=== PATIENT | male | born 1990 | race African-American/Black ===

== ENCOUNTER 2019-06-26 23:47 | Observation (INO) ==
[2019-06-27 02:07] LABS: Albumin 4.1 G/DL (3.4-5.0); Bilirubin,Total 0.6 MG/DL (0.2-1.0); Calcium 8.6 MG/DL (8.5-10.1); Osmolality,Calculated 277.5 MOS/KG (273-304); Total Protein 7.5 G/DL (6.4-8.3)
[2019-06-27 02:54] LABS: Basophils % 0.4 % (0.0-0.8); Eosinophils % 0.4 % (0.00-10.9); Hematocrit 42.5 VOL% (42.0-52.0); Hemoglobin 14.2 GM/DL (14.0-18.0); Immature Granulocytes % 0.2 %; Immature Granulocytes Absolute 0.02 #; Lymphocytes # 1.5 10*3/uL (1.4-4.0); Lymphocytes % 18.4 % (21.2-54.2); Mean Corpuscular HGB Conc 33.4 GM/DL (32-36); Mean Corpuscular Volume 90.2 FL (87-102); Mean Platelet Volume 11.8 FL (9.6-12.0); Monocytes % 10.8 % (1.7-12.7); Neutrophils % 69.8 % (38.7-73.9); Platelet Count 172 T/CUMM (130-400); Red Blood Count 4.71 MC/CUMM (3.8-5.5); Red Cell Distribution Width 12.2 % (9.3-17.3); White Blood Count 8.1 T/CUMM (4-12)
[2019-06-27] MEDS ORDERED: ONDANSETRON 4 MG/2 ML VIAL IV PRN (05:32)
[2019-06-27] MEDS ORDERED: LABETALOL 20 MG/4 ML SYRINGE IV PRN (05:39)
[2019-06-27] MEDS: ENOXAPARIN 40 MG/0.4 ML SYRINGE SUBCUT SCH (07:19)
[2019-06-27 08:01] LABS: Risk Ratio 3.49; VLDL CHOLESTEROL 22.6 MG/DL
[2019-06-27] MEDS ORDERED: SODIUM CHLORIDE 0.9% 1,000 ML IV SCH (10:30)
[2019-06-27] MEDS: ACETAMINOPHEN 325 MG TABLET PO PRN ×2 (10:46→21:11)
[2019-06-27] MEDS: POTASSIUM CHLORIDE 20 MEQ TABLET PO SCH ×2 (10:47→21:12)
[2019-06-27] MEDS: PANTOPRAZOLE 40 MG TABLET PO SCH (10:47)
[2019-06-27 11:44] LABS: Barbiturates Screen,Urine Negative (Negative); Benzodiazepines Screen,Urine Negative (Negative); Cannabinoid Screen,Urine Negative (Negative); Opiate Screen,Urine Negative (Negative); Phencyclidine Screen,Urine Negative (Negative)
[2019-06-27] MEDS: SODIUM CHLORIDE 0.9% 1,000 ML IV SCH ×2 (12:06→21:15)
[2019-06-27] MEDS: MORPHINE 4 MG/1 ML VIAL IV PRN ×2 (12:46→18:18)
[2019-06-27] MEDS: carvediloL 6.25 MG TABLET PO SCH (21:12)
[2019-06-27] MEDS: SACUBITRIL/VALSARTAN 49-51 MG TABLET PO SCH (21:12)
[2019-06-28] MEDS: MORPHINE 4 MG/1 ML VIAL IV PRN (02:44)
[2019-06-28 05:26] LABS: Basophils % 0.3 % (0.0-0.8); Eosinophils # 0.1 10*3/uL (0.0-0.87); Eosinophils % 2.1 % (0.00-10.9); Hematocrit 41.2 VOL% (42.0-52.0); Hemoglobin 13.7 GM/DL (14.0-18.0); Immature Granulocytes % 0.3 %; Immature Granulocytes Absolute 0.02 #; Lymphocytes # 2.2 10*3/uL (1.4-4.0); Lymphocytes % 32.8 % (21.2-54.2); Mean Corpuscular HGB Conc 33.3 GM/DL (32-36); Mean Corpuscular Volume 90.5 FL (87-102); Mean Platelet Volume 12.3 FL (9.6-12.0); Monocytes % 13.4 % (1.7-12.7); Neutrophils % 51.1 % (38.7-73.9); Platelet Count 180 T/CUMM (130-400); Red Blood Count 4.55 MC/CUMM (3.8-5.5); Red Cell Distribution Width 12.3 % (9.3-17.3); White Blood Count 6.6 T/CUMM (4-12)
[2019-06-28 06:00] LABS: Albumin 3.4 G/DL (3.4-5.0); Calcium 8.8 MG/DL (8.5-10.1); Osmolality,Calculated 272.8 MOS/KG (273-304)
[2019-06-28] MEDS: ENOXAPARIN 40 MG/0.4 ML SYRINGE SUBCUT SCH (06:22)
[2019-06-28] MEDS: SACUBITRIL/VALSARTAN 49-51 MG TABLET PO SCH ×2 (09:02→21:08)
[2019-06-28] MEDS: PANTOPRAZOLE 40 MG TABLET PO SCH (09:02)
[2019-06-28] MEDS: carvediloL 6.25 MG TABLET PO SCH ×2 (09:02→21:08)
[2019-06-28] MEDS: POTASSIUM CHLORIDE 20 MEQ TABLET PO SCH ×2 (09:02→21:07)
[2019-06-28] MEDS: FUROSEMIDE 40 MG/4 ML VIAL IV SCH (17:56)
[2019-06-29 05:32] LABS: Calcium 9.2 MG/DL (8.5-10.1); Osmolality,Calculated 271.1 MOS/KG (273-304)
[2019-06-29] MEDS: ENOXAPARIN 40 MG/0.4 ML SYRINGE SUBCUT SCH (05:58)
[2019-06-29] MEDS: FUROSEMIDE 40 MG/4 ML VIAL IV SCH (09:00)
[2019-06-29] MEDS: SACUBITRIL/VALSARTAN 49-51 MG TABLET PO SCH ×2 (09:02→20:44)
[2019-06-29] MEDS: PANTOPRAZOLE 40 MG TABLET PO SCH (09:02)
[2019-06-29] MEDS: POTASSIUM CHLORIDE 20 MEQ TABLET PO SCH ×2 (09:02→20:44)
[2019-06-29] MEDS: carvediloL 6.25 MG TABLET PO SCH ×2 (09:02→20:44)
[2019-06-30] MEDS: ENOXAPARIN 40 MG/0.4 ML SYRINGE SUBCUT SCH (06:27)
[2019-06-30] MEDS ORDERED: FUROSEMIDE 40 MG TABLET PO SCH (09:00)
[2019-06-30] MEDS ORDERED: FUROSEMIDE 40 MG/4 ML VIAL IV SCH (09:00)
[2019-06-30] MEDS: SACUBITRIL/VALSARTAN 49-51 MG TABLET PO SCH (09:55)
[2019-06-30] MEDS: POTASSIUM CHLORIDE 20 MEQ TABLET PO SCH (09:55)
[2019-06-30] MEDS: PANTOPRAZOLE 40 MG TABLET PO SCH (09:56)
[2019-06-30] MEDS: carvediloL 6.25 MG TABLET PO SCH (09:56)
[2019-06-30 14:16] VITALS: BP 110/61
== END 2019-06-30 15:15 | disposition home or self-care (01) ==
LOC: N.ED 23:47 → N.EDINP 23:47 → SUATTDRO 06-27 05:32 → N.TELES 06-27 06:21
PROVIDERS: ADMIT Internal Medicine; ATTEND Internal Medicine

== ENCOUNTER 2019-08-21 20:19 | Observation (INO) ==
[2019-08-21] MEDS ORDERED: ALBUTEROL/IPRATROPIUM 3 ML NEB RESP TX STA (21:41)
[2019-08-21 22:08] LABS: Basophils # 0.1 10*3/uL (0.0-0.2); Basophils % 0.6 % (0.0-0.8); Eosinophils # 0.4 10*3/uL (0.0-0.87); Eosinophils % 4.5 % (0.00-10.9); Hematocrit 45.7 VOL% (42.0-52.0); Hemoglobin 15.1 GM/DL (14.0-18.0); Immature Granulocytes % 0.3 %; Immature Granulocytes Absolute 0.03 #; Lymphocytes # 2.5 10*3/uL (1.4-4.0); Lymphocytes % 27.9 % (21.2-54.2); Mean Corpuscular Volume 92.1 FL (87-102); Monocytes % 13.3 % (1.7-12.7); Neutrophils % 53.4 % (38.7-73.9); Platelet Count 262 T/CUMM (130-400); Red Blood Count 4.96 MC/CUMM (3.8-5.5); Red Cell Distribution Width 12.8 % (9.3-17.3)
[2019-08-21 22:16] LABS: INR 0.9; PT Patient Result 10.3 SECS (9.6-12.2); Partial Thromboplastin Time 25.5 SECS (20.8-36.0)
[2019-08-21 22:40] LABS: Alanine Aminotransferase 61 U/L (16-61); Albumin 4.2 G/DL (3.4-5.0); Alkaline Phosphatase 76 U/L (45-117); Aspartate Amino Transferase 34 U/L (0-37); Blood Urea Nitrogen 18 MG/DL (7-18); Calcium 9.4 MG/DL (8.5-10.1); Estimated Glom Filtration Rate 78 ML/MIN; Glucose 100 MG/DL (74-106); Total Protein 8.8 G/DL (6.4-8.3); Troponin I 0.042 NG/ML (0.00-0.045)
[2019-08-21 23:48] LABS: Apearance,Urine CLEAR (Clear); Bilirubin,Urine Negative (Negative); Blood, Urine Moderate mg/dL (Negative); Glucose,Urine (UA) Negative (Negative); Hyaline Casts,Urine 1 /LPF (0-3); Ketones,Urine Negative (Negative); Nitrite,Urine Negative (Negative); Protein,Urine Negative; RBC,Urine 3 /HPF (0-4); Urine Color Yellow (Yellow); Urine Specific Gravity 1.023 (1.001-1.035); WBC,Urine 1 /HPF (0-6)
[2019-08-21 23:55] LABS: Barbiturates Screen,Urine Negative (Negative); Benzodiazepines Screen,Urine Negative (Negative); Cannabinoid Screen,Urine Negative (Negative); Opiate Screen,Urine Negative (Negative); Phencyclidine Screen,Urine Negative (Negative)
[2019-08-22] MEDS ORDERED: cefTRIAXone 1,000 MG in SODIUM CHLORIDE 0.9% 100 ML IV STA (01:20)
[2019-08-22] MEDS ORDERED: AZITHROMYCIN INJ 500 MG in SODIUM CHLORIDE 0.9% 250 ML IV STA (01:20)
[2019-08-22] MEDS ORDERED: diphenhydrAMINE 50 MG/1 ML VIAL ONE (02:07)
[2019-08-22] MEDS ORDERED: diphenhydrAMINE 50 MG/1 ML VIAL IV STA (02:55)
[2019-08-22] MEDS ORDERED: ALBUTEROL 2.5 MG/3 ML NEB RESP TX PRN (03:25)
[2019-08-22] MEDS ORDERED: DOCUSATE SODIUM 100 MG CAPSULE PO PRN (03:28)
[2019-08-22] MEDS ORDERED: MORPHINE 4 MG/1 ML VIAL IV PRN (03:28)
[2019-08-22] MEDS ORDERED: ACETAMINOPHEN 325 MG TABLET PO PRN (03:28)
[2019-08-22] MEDS ORDERED: ONDANSETRON 4 MG/2 ML VIAL IV PRN (03:28)
[2019-08-22] MEDS ORDERED: NICOTINE 21 MG/24 HR PATCH TRANSDERM PRN (04:14)
[2019-08-22 05:21] LABS: Basophils # 0.1 10*3/uL (0.0-0.2); Basophils % 0.8 % (0.0-0.8); Eosinophils # 0.4 10*3/uL (0.0-0.87); Eosinophils % 5.7 % (0.00-10.9); Hematocrit 41.6 VOL% (42.0-52.0); Hemoglobin 13.9 GM/DL (14.0-18.0); Immature Granulocytes % 0.2 %; Immature Granulocytes Absolute 0.01 #; Lymphocytes # 2.2 10*3/uL (1.4-4.0); Lymphocytes % 33.5 % (21.2-54.2); Mean Corpuscular HGB Conc 33.4 GM/DL (32-36); Mean Corpuscular Volume 90.4 FL (87-102); Mean Platelet Volume 11.4 FL (9.6-12.0); Monocytes % 15.4 % (1.7-12.7); Neutrophils % 44.4 % (38.7-73.9); Platelet Count 241 T/CUMM (130-400); Red Cell Distribution Width 12.8 % (9.3-17.3); White Blood Count 6.5 T/CUMM (4-12)
[2019-08-22 05:56] LABS: Calcium 8.9 MG/DL (8.5-10.1); Osmolality,Calculated 275.8 MOS/KG (273-304)
[2019-08-22] MEDS: ALBUTEROL/IPRATROPIUM 3 ML NEB RESP TX SCH ×3 (07:44→20:08)
[2019-08-22] MEDS: PANTOPRAZOLE 20 MG TABLET PO SCH (09:52)
[2019-08-22] MEDS: SACUBITRIL/VALSARTAN 49-51 MG TABLET PO SCH ×2 (09:52→16:56)
[2019-08-22] MEDS: FUROSEMIDE 40 MG TABLET PO SCH (09:52)
[2019-08-22] MEDS: POTASSIUM CHLORIDE 20 MEQ TABLET PO SCH ×2 (09:52→20:40)
[2019-08-22] MEDS: ENOXAPARIN 40 MG/0.4 ML SYRINGE SUBCUT SCH (09:52)
[2019-08-22] MEDS: carvediloL 6.25 MG TABLET PO SCH ×2 (10:00→16:59)
[2019-08-23] MEDS: ALBUTEROL/IPRATROPIUM 3 ML NEB RESP TX SCH ×2 (00:24→07:22)
[2019-08-23] MEDS ORDERED: diphenhydrAMINE 50 MG/1 ML VIAL IV ONE (01:31)
[2019-08-23] MEDS ORDERED: AZITHROMYCIN INJ 500 MG in SODIUM CHLORIDE 0.9% 250 ML IV SCH (02:00)
[2019-08-23] MEDS ORDERED: cefTRIAXone 1,000 MG in SYRINGE 1 EACH IV SCH (02:00)
[2019-08-23 05:07] LABS: Basophils # 0.1 10*3/uL (0.0-0.2); Basophils % 0.8 % (0.0-0.8); Eosinophils # 0.3 10*3/uL (0.0-0.87); Eosinophils % 5.2 % (0.00-10.9); Hematocrit 40.1 VOL% (42.0-52.0); Immature Granulocytes % 0.2 %; Immature Granulocytes Absolute 0.01 #; Lymphocytes % 30.9 % (21.2-54.2); Mean Corpuscular HGB Conc 32.4 GM/DL (32-36); Mean Platelet Volume 11.1 FL (9.6-12.0); Monocytes % 16.6 % (1.7-12.7); Neutrophils % 46.3 % (38.7-73.9); Platelet Count 229 T/CUMM (130-400); Red Blood Count 4.31 MC/CUMM (3.8-5.5); Red Cell Distribution Width 12.7 % (9.3-17.3); White Blood Count 6.6 T/CUMM (4-12)
[2019-08-23 05:45] LABS: Calcium 8.5 MG/DL (8.5-10.1); Osmolality,Calculated 277.7 MOS/KG (273-304)
[2019-08-23 05:55] LABS: Band Neutrophils 3 % (0-10); Eosinophils 4 % (0-10); Lymphocytes 37 % (20-55); Segmented Neutrophils 45 % (50-85)
[2019-08-23 05:56] LABS: Platelet Estimate Normal; Total Cells Counted 100
[2019-08-23] MEDS: FUROSEMIDE 40 MG TABLET PO SCH (08:16)
[2019-08-23] MEDS: PANTOPRAZOLE 20 MG TABLET PO SCH (08:16)
[2019-08-23] MEDS: carvediloL 6.25 MG TABLET PO SCH (08:16)
[2019-08-23] MEDS: SACUBITRIL/VALSARTAN 49-51 MG TABLET PO SCH (08:16)
[2019-08-23] MEDS: POTASSIUM CHLORIDE 20 MEQ TABLET PO SCH (08:17)
[2019-08-23] MEDS: ENOXAPARIN 40 MG/0.4 ML SYRINGE SUBCUT SCH (08:18)
[2019-08-23 11:03] VITALS: BP 140/71
[2019-08-24] MEDS ORDERED: AZITHROMYCIN 250 MG TABLET PO SCH (09:00)
== END 2019-08-23 12:05 | disposition home or self-care (01) ==
LOC: N.EDINP 20:19 → N.ED 20:19 → N.3E 08-22 03:39
PROVIDERS: ADMIT Internal Medicine; ATTEND Internal Medicine